=== PATIENT | male | born 1985 | race American Indian/Alaskan Native ===

== ENCOUNTER 2020-11-04 17:58 | Emergency (ER) | payer SELFPAY ==
[2020-11-04 18:05] VITALS: BP 132/74
[2020-11-04 18:46] LABS: Bilirubin,Urine NEG (Negative); Blood,Urine LG (Negative); Color,Urine Yellow (Yellow)
--- NOTE | 2020-11-04 18:47 | Emergency Department Report ---
ED General Adult HPI - General Chief complaint: Urogenital-Male Stated complaint: BLOOD IN URINE Time Seen by Provider: 11/04/20 18:29 Source: patient Mode of arrival: Ambulatory Limitations: No Limitations - History of Present Illness Initial comments: The patient presents to the emergency department the chief complaint of blood in his urine. 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 Patient states he is supposed to follow-up with a primary care physician for further evaluation but decided come to the emergency department today. Patient denies any trauma. Patient denies any burning with urination or unprotected intercourse. Patient denies any undisplaced weight loss or night sweats. -: days(s) (2) Severity scale (0 -10): 0 Improves with: none Worsens with: cold therapy Associated Symptoms: denies other symptoms Treatments Prior to Arrival: none - Related Data Previous Rx's Medication Instructions Recorded Last Taken Type Fluticasone [Flonase] 1 spray NS QDAY #1 bottle 11/20/15 Unknown Rx Ibuprofen [Motrin] 600 mg PO Q8H PRN #30 tablet 11/20/15 Unknown Rx Meclizine [Antivert] 25 mg PO TID PRN #20 tablet 11/20/15 Unknown Rx Amoxicillin/Potassium Clav 1 each PO BID #14 tablet 08/10/17 Unknown Rx [Augmentin 875-125 Tablet] Ibuprofen [Motrin] 800 mg PO Q8HR PRN #20 tablet 08/10/17 Unknown Rx Neomy/Polymyx B/Hc (Otic) Soln 4 drops OTIC TID #1 bottle 08/10/17 Unknown Rx [Cortisporin (Otic) Soln] Allergies Allergy/AdvReac Type Severity Reaction Status Date / Time No Known Allergies Allergy Verified 04/29/15 00:56 ED Review of Systems ROS: Stated complaint: BLOOD IN URINE Other details as noted in HPI Comment: All other systems reviewed and negative Constitutional: denies: chills, fever Eyes: denies: eye pain, eye discharge, vision change ENT: denies: ear pain, throat pain Respiratory: denies: cough, shortness of breath, wheezing Cardiovascular: denies: chest pain, palpitations Endocrine: no symptoms reported Gastrointestinal: denies: abdominal pain, nausea, diarrhea Genitourinary: denies: urgency, dysuria Musculoskeletal: denies: back pain, joint swelling, arthralgia Skin: denies: rash, lesions Neurological: denies: headache, weakness, paresthesias Psychiatric: denies: anxiety, depression Hematological/Lymphatic: denies: easy bleeding, easy bruising ED Past Medical Hx - Past Medical History Previous Medical History?: No - Surgical History Past Surgical History?: No - Social History Smoking Status: Never Smoker Substance Use Type: None - Medications Home Medications: Home Medications Medication Instructions Recorded Confirmed Last Taken Type Fluticasone [Flonase] 1 spray NS QDAY #1 bottle 11/20/15 Unknown Rx Ibuprofen [Motrin] 600 mg PO Q8H PRN #30 tablet 11/20/15 Unknown Rx Meclizine [Antivert] 25 mg PO TID PRN #20 tablet 11/20/15 Unknown Rx Amoxicillin/Potassium Clav 1 each PO BID #14 tablet 08/10/17 Unknown Rx [Augmentin 875-125 Tablet] Ibuprofen [Motrin] 800 mg PO Q8HR PRN #20 tablet 08/10/17 Unknown Rx Neomy/Polymyx B/Hc (Otic) Soln 4 drops OTIC TID #1 bottle 08/10/17 Unknown Rx [Cortisporin (Otic) Soln] ED Physical Exam - General Limitations: No Limitations General appearance: alert, in no apparent distress - Head Head exam: Present: atraumatic, normocephalic - Eye Eye exam: Present: normal appearance, PERRL - ENT ENT exam: Present: mucous membranes moist - Neck Neck exam: Present: normal inspection - Respiratory Respiratory exam: Present: normal lung sounds bilaterally. Absent: respiratory distress - Cardiovascular Cardiovascular Exam: Present: regular rate, normal rhythm. Absent: systolic murmur, diastolic murmur, rubs, gallop - GI/Abdominal GI/Abdominal exam: Present: soft, normal bowel sounds. Absent: distended, tenderness - Rectal Rectal exam: Present: deferred - Extremities Exam Extremities exam: Present: normal inspection - Back Exam Back exam: Present: normal inspection - Neurological Exam Neurological exam: Present: alert, oriented X3 - Psychiatric Psychiatric exam: Present: normal affect, normal mood - Skin Skin exam: Present: warm, dry, intact, normal color. Absent: rash ED Course Vital Signs 11/04/20 18:03 Temperature 98.3 F Pulse Rate 68 Respiratory 18 Rate Blood Pressure 132/74 O2 Sat by Pulse 99 Oximetry ED Medical Decision Making - Medical Decision Making Patient was instructed to follow-up with primary care physician for further evaluation for his next DOT physical which will be in 6 months. It was explained to the patient that his instructions via the DOT provider was for him to be seen by primary care physician within 6 months for further evaluation of the micro hematuria. It explained in detail with the patient the need for him to follow-up with primary care physician thus 1 will be given to him. Critical care attestation.: If time is entered above; I have spent that time in minutes in the direct care of this critically ill patient, excluding procedure time. ED Disposition Clinical Impression: Hematuria Disposition: 01 HOME / SELF CARE / HOMELESS Is pt being admited?: No Does the pt Need Aspirin: No Condition: Stable Instructions: Hematuria, Adult Additional Instructions: Return if worse Referrals: LEXUS GREER MD [Staff Physician] - 3-5 Days Time of Disposition: 18:46
== END 2020-11-04 19:26 | disposition home or self-care (01) ==
LOC: ED 17:58
DX: R31.9 Hematuria, unspecified (principal)
CPT/HCPCS: 81001; 99283

== ENCOUNTER 2021-06-01 12:07 | Emergency (ER) | payer SELFPAY ==
[2021-06-01 12:30] VITALS: BP 115/73
[2021-06-01] MEDS ORDERED: KETOROLAC 10 MG TAB PO ONE (13:01)
--- NOTE | 2021-06-01 13:37 | XRay Report ---
XR ankle 3+V RT INDICATION / CLINICAL INFORMATION: injury, pain COMPARISON: None available. FINDINGS: BONES / JOINT(S): No acute fracture or subluxation. Ankle mortise is symmetric. No significant arthri tis. SOFT TISSUES: No significant abnormality. ADDITIONAL FINDINGS: None. IMPRESSION: No acute osseous findings in the right ankle. Signer Name: Chapincito Johansen MD Signed: 06/01/2021 1:33 PM Workstation Name: [id number]
--- NOTE | 2021-06-01 13:37 | XRay Report ---
RIGHT KNEE 3 VIEW(S) INDICATION / CLINICAL INFORMATION: injury, pain COMPARISON: None available. FINDINGS: BONES / JOINT(S): No acute fracture or subluxation. No significant arthritis. No significant joint ef fusion. SOFT TISSUES: No significant abnormality. ADDITIONAL FINDINGS: None. IMPRESSION: No acute osseous findings in the right knee. Signer Name: Chapincito Johansen MD Signed: 06/01/2021 1:33 PM Workstation Name: [id number]
--- NOTE | 2021-06-01 14:05 | Emergency Department Report ---
ED Extremity Problem HPI - General Chief complaint: Extremity Injury, Lower Stated complaint: ACL AND ACHILLES TENDON Time Seen by Provider: 06/01/21 12:35 Source: patient Mode of arrival: Ambulatory Limitations: No Limitations - History of Present Illness Initial comments: 35-year-old black male with no past medical history presents to the emergency de partment for evaluation of right ankle and knee pain. He states that pain started 6 days ago after he was walking upstairs, twisted his ankle and heard a popping sound. He states that he has not taken any medications at home and pain has been getting progressively worse and includes his right knee also. MD Complaint: extremity pain -: Gradual, days(s) (6) Location: right, knee, other (Right ankle) History of Same: No -: No myalgia, No arthralgia, No fever, No associated dyspnea, No associated chest pain Severity scale (0 -10): 3 Quality: aching Consistency: constant Worsens with: weight bearing Associated Symptoms: denies: chest pain, shortness of breath, fever, myalgias, arthralgias, rash - Related Data Previous Rx's Medication Instructions Recorded Last Taken Type Fluticasone [Flonase] 1 spray NS QDAY #1 bottle 11/20/15 Unknown Rx Ibuprofen [Motrin] 600 mg PO Q8H PRN #30 tablet 11/20/15 Unknown Rx Meclizine [Antivert] 25 mg PO TID PRN #20 tablet 11/20/15 Unknown Rx Amoxicillin/Potassium Clav 1 each PO BID #14 tablet 08/10/17 Unknown Rx [Augmentin 875-125 Tablet] Ibuprofen [Motrin] 800 mg PO Q8HR PRN #20 tablet 08/10/17 Unknown Rx Neomy/Polymyx B/Hc (Otic) Soln 4 drops OTIC TID #1 bottle 08/10/17 Unknown Rx [Cortisporin (Otic) Soln] Naproxen [Naprosyn] 500 mg PO BID #14 tab 06/01/21 Unknown Rx Allergies Allergy/AdvReac Type Severity Reaction Status Date / Time No Known Allergies Allergy Verified 04/29/15 00:56 ED Review of Systems ROS: Stated complaint: ACL AND ACHILLES TENDON Other details as noted in HPI Comment: All other systems reviewed and negative Constitutional: denies: chills, fever Respiratory: denies: shortness of breath, SOB with exertion, SOB at rest Cardiovascular: denies: chest pain, palpitations, dyspnea on exertion Gastrointestinal: denies: abdominal pain, nausea, vomiting, diarrhea, hematemesis, melena, hematochezia Genitourinary: denies: urgency, dysuria, frequency, hematuria Musculoskeletal: denies: back pain ED Past Medical Hx - Past Medical History Previous Medical History?: No - Surgical History Past Surgical History?: No - Social History Smoking Status: Never Smoker Substance Use Type: None - Medications Home Medications: Home Medications Medication Instructions Recorded Confirmed Last Taken Type Fluticasone [Flonase] 1 spray NS QDAY #1 bottle 11/20/15 Unknown Rx Ibuprofen [Motrin] 600 mg PO Q8H PRN #30 tablet 11/20/15 Unknown Rx Meclizine [Antivert] 25 mg PO TID PRN #20 tablet 11/20/15 Unknown Rx Amoxicillin/Potassium Clav 1 each PO BID #14 tablet 08/10/17 Unknown Rx [Augmentin 875-125 Tablet] Ibuprofen [Motrin] 800 mg PO Q8HR PRN #20 tablet 08/10/17 Unknown Rx Neomy/Polymyx B/Hc (Otic) Soln 4 drops OTIC TID #1 bottle 08/10/17 Unknown Rx [Cortisporin (Otic) Soln] Naproxen [Naprosyn] 500 mg PO BID #14 tab 06/01/21 Unknown Rx ED Physical Exam - General Limitations: No Limitations General appearance: alert, in no apparent distress - Head Head exam: Present: atraumatic, normocephalic - Eye Eye exam: Present: normal appearance. Absent: conjunctival injection - Neck Neck exam: Present: normal inspection. Absent: lymphadenopathy - Respiratory Respiratory exam: Absent: respiratory distress - Cardiovascular Cardiovascular Exam: Present: regular rate - GI/Abdominal GI/Abdominal exam: Absent: distended - Expanded Lower Extremity Exam Right Knee exam: Present: normal inspection, tenderness. Absent: swelling, abrasion, ecchymosis, deformity, crepidus, dislocation, erythema, effusion Ankle exam: Present: normal inspection, full ROM, tenderness. Absent: swelling, abrasion, ecchymosis, deformity, crepidus, dislocation, erythema Neuro vascular tendon exam: Present: no vascular compromise. Absent: pulse deficit, abnormal cap refill, motor deficit, sensory deficit, extremity cold to touch, pallor Gait: Positive: observed and normal - Back Exam Back exam: Present: normal inspection, full ROM - Neurological Exam Neurological exam: Present: alert, oriented X3, normal gait - Psychiatric Psychiatric exam: Present: normal affect, normal mood - Skin Skin exam: Present: warm, dry, intact, normal color ED Course Vital Signs 06/01/21 12:26 Temperature 98.2 F Pulse Rate 69 Respiratory 16 Rate Blood Pressure 115/73 [Right] O2 Sat by Pulse 99 Oximetry ED Medical Decision Making - Radiology Data Radiology results: report reviewed, image reviewed Right knee x-ray: FINDINGS: BONES / JOINT(S): No acute fracture or subluxation. No significant arthritis. No significant joint effusion. SOFT TISSUES: No significant abnormality. ADDITIONAL FINDINGS: None. IMPRESSION: No acute osseous findings in the right knee. Right ankle x-ray: FINDINGS: BONES / JOINT(S): No acute fracture or subluxation. Ankle mortise is symmetric. No significant arthritis. SOFT TISSUES: No significant abnormality. ADDITIONAL FINDINGS: None. IMPRESSION: No acute osseous findings in the right ankle - Medical Decision Making 35-year-old black male with no past medical history presents to the emergency department for evaluation of right ankle and knee pain. He states that pain started 6 days ago after he was walking upstairs, twisted his ankle and heard a popping sound. He states that he has not taken any medications at home and pain has been getting progressively worse and includes his right knee also. Right ankle and right knee x-ray without any acute abnormalities noted. No gross abnormalities noted on assessment. Patient will be treated for musculoskeletal pain with 7-day course of naproxen. He was advised to take medications as prescribed and follow-up with orthopedics for evaluation and management if no improvement. He verbalized understanding of and agreement with plan of care. Critical care attestation.: If time is entered above; I have spent that time in minutes in the direct care of this critically ill patient, excluding procedure time. ED Disposition Clinical Impression: Right knee pain Qualifiers: Chronicity: acute Qualified Code(s): M25.561 - Pain in right knee Right ankle pain Qualifiers: Chronicity: acute Qualified Code(s): M25.571 - Pain in right ankle and joints of right foot Disposition: HOME / SELF CARE / HOMELESS Is pt being admited?: No Does the pt Need Aspirin: No Condition: Stable Instructions: How to Use Cold Therapy, [id number], Musculoskeletal Pain, Pain Without a Known Cause, Acute Knee Pain, Adult, [id number] Additional Instructions: Take medications as prescribed. Follow up with orthopedics if no improvement or worsening symptoms. Prescriptions: Naproxen [Naprosyn] 500 mg PO BID #14 tab Referrals: SERGEY OLIVO MD [Staff Physician] - 3-5 Days Forms: Work/School Release Form(ED) Time of Disposition: 14:04
== END 2021-06-01 14:42 | disposition home or self-care (01) ==
LOC: ED 12:07
DX: M25.561 Pain in right knee (principal); M25.571 Pain in right ankle and joints of right foot
CPT/HCPCS: 99283